=== PATIENT | female | born 1985 | race Caucasian/White ===

== ENCOUNTER 2018-05-17 16:25 | Emergency (ER) | payer OTHER ==
[2018-05-17 16:34] VITALS: BP 108/65
--- NOTE | 2018-05-17 17:19 | ER Document Report ---
HPI - HPI Patient complains to provider of: Needs pain medication refilled Onset: Other - Chronic right-sided back pain Onset/Duration: Persistent Pain Level: 5 Context: 32-year-old female moved here from [place] complaining of exacerbation of her right low back pain especially moving the boxes and moving her household. She has 4 children. She is supposed to get a MRI of her hip because he thinks some of the pain is coming from her hip. She wants a refill on Percocet and ketorolac 10 mg. I explained to her that we cannot prescribe the Percocet but I will be happy to give her the nonsteroidal anti-inflammatory medication and refer her to pain management primary care doctor in the area. No radiculopathy or saddle anesthesia Associated Symptoms: None Exacerbated by: Movement Relieved by: Denies Similar symptoms previously: No Recently seen / treated by doctor: No - ROS ROS below otherwise negative: Yes Systems Reviewed and Negative: Yes All other systems reviewed and negative Past Medical History - General Information source: Patient - Social History Smoking Status: Current Every Day Smoker Frequency of alcohol use: None Drug Abuse: None Lives with: Family Family History: Reviewed & Not Pertinent - Medical History Medical History: Negative Surgical Hx: Negative Vertical Provider Document - CONSTITUTIONAL Agree With Documented VS: Yes Exam Limitations: No Limitations - INFECTION CONTROL TRAVEL OUTSIDE OF THE [place] IN LAST 30 DAYS: No - NECK Neck: Supple - MUSCULOSKELETAL/EXTREMETIES Musculoskeletal/Extremeties: Tender - Right sacral iliac joint area - NEURO Level of Consciousness: Alert Motor/Sensory: No Motor Deficit, No Sensory Deficit Deep Tendon Reflexes: 2+ - Bilateral ankle and patellar - DERM Integumentary: No Rash Course - Vital Signs Vital signs: Temp Pulse Resp BP Pulse Ox 98.7 F 76 14 108/65 99 05/17/18 16:31 05/17/18 16:31 05/17/18 16:31 05/17/18 16:31 05/17/18 16:31 Discharge - Discharge Clinical Impression: chornic right low back pain Condition: Good Disposition: HOME, SELF-CARE Instructions: Acetaminophen, Anti-Inflammatory Medication ([facility]), Family Physicians / Practices, Pain Management Additional Instructions: see primary care doctor Referral to [facility] Warm compress Avoid heavy lifting You can take up to 4000 mg of plain Tylenol The ketorolac as an anti-inflammatory that she can take 3 times a day Return to the emergency room any concerns Prescriptions: Ketorolac Tromethamine 10 mg PO Q8HP PRN #30 tablet PRN Reason: Referrals: WESTON WOOTEN MD [ACTIVE STAFF] - Follow up as needed
== END 2018-05-17 17:29 | disposition home or self-care (01) ==
LOC: ER 16:25
DX: G89.29 Other chronic pain (principal); M54.5 Low back pain; F17.200 Nicotine dependence, unspecified, uncomplicated
CPT/HCPCS: 99283

== ENCOUNTER → 2019-01-22 | Outpatient (CLI) | payer MEDICAID ==
--- NOTE | 2019-01-22 12:45 | RADIOLOGY REPORT (SQ) ---
EXAM DESCRIPTION: HIPS BILATERAL COMPLETED DATE/TIME: 01/22/2019 12:39 pm REASON FOR STUDY: DARCY HIP PAIN M25.551 PAIN IN RIGHT HIP COMPARISON: None. NUMBER OF VIEWS: Two views TECHNIQUE: AP pelvis and additional frog-leg view of both hips. LIMITATIONS: None. FINDINGS: MINERALIZATION: Normal. HIPS: No acute fracture or dislocation. No worrisome bone lesions. PELVIS AND SACRUM: No acute fracture or dislocation. No worrisome bone lesions. PUBIS AND ISCHIUM: No acute fracture. LOWER LUMBAR SPINE: No significant findings as visualized. SOFT TISSUES: No findings. OTHER: No other significant finding. IMPRESSION: NEGATIVE STUDY OF THE PELVIS AND HIPS. TECHNICAL DOCUMENTATION: JOB ID: [id number] [employer]- All Rights Reserved Reading location - IP/workstation name: [email or web address]
== END ==
LOC: OD 12:06
PROVIDERS: ATTEND Student in an Organized Health Care Education/Training Program
DX: M25.551 Pain in right hip (principal); M25.552 Pain in left hip
CPT/HCPCS: 73522

== ENCOUNTER 2019-02-15 20:43 | Emergency (ER) | payer MEDICAID ==
[2019-02-15 20:53] VITALS: BP 110/70
== END 2019-02-15 21:40 | disposition left against medical advice (07) ==
LOC: ER 20:43
DX: Z53.21 Procedure and treatment not carried out due to patient leaving prior to being seen by health care provider (principal)

== ENCOUNTER → 2019-03-19 | Outpatient (CLI) | payer MEDICAID ==
--- NOTE | 2019-03-19 12:48 | RADIOLOGY REPORT (SQ) ---
EXAM DESCRIPTION: C SP 4 OR 5 VIEWS COMPLETED DATE/TIME: 03/19/2019 12:09 pm REASON FOR STUDY: CERVICALGIA M54.2 CERVICALGIA COMPARISON: None. NUMBER OF VIEWS: Five views. TECHNIQUE: AP, lateral, obliques and odontoid radiographic images acquired of the cervical spine. LIMITATIONS: None. FINDINGS: MINERALIZATION: Normal. ALIGNMENT: Anatomic. VERTEBRAE: Vertebral bodies of normal height. DISCS: No significant osteophytes or sclerosis. Disc height maintained. FORAMINA: No osteophytes or foraminal narrowing. LATERAL AND POSTERIOR ELEMENTS: Facets, lateral masses and spinous processes without significant find ings. HARDWARE: None in the spine. SOFT TISSUES: No masses or calcifications. Lung apices clear. OTHER: No other significant finding. IMPRESSION: NO SIGNIFICANT RADIOGRAPHIC FINDING IN THE CERVICAL SPINE. TECHNICAL DOCUMENTATION: JOB ID: [id number] [employer]- All Rights Reserved Reading location - IP/workstation name: [email or web address]
== END ==
LOC: OD 11:38
PROVIDERS: ATTEND Student in an Organized Health Care Education/Training Program
DX: M54.2 Cervicalgia (principal)
CPT/HCPCS: 72050

== ENCOUNTER → 2019-07-18 | Outpatient (CLI) | payer MEDICAID ==
--- NOTE | 2019-07-18 12:01 | RADIOLOGY REPORT (SQ) ---
EXAM DESCRIPTION: MRI LUMBAR SPINE WITHOUT COMPLETED DATE/TIME: 07/18/2019 10:18 am REASON FOR STUDY: LUMBAGO WITH SCIATICA, LEFT SIDE (M54.42) M54.42 LUMBAGO WITH SCIATICA, LEFT SIDE COMPARISON: None. TECHNIQUE: Sagittal and Axial imaging includes T1, T2, STIR and gradient echo sequences. Coronal T2/ HASTE imaging. LIMITATIONS: None. FINDINGS: VISUALIZED UPPER ABDOMEN: Duplicated right renal collecting system, an anatomic variant. SEGMENTATION: No transitional anatomy. The lowest well-developed disc space is labeled L5-S1. ALIGNMENT: Anatomic. VERTEBRAE: Intact. BONE MARROW: Normal. No marrow replacement or reactive changes. DISC SIGNAL: Normal. No significant abnormal signal or loss of height. POSTERIOR ELEMENTS: Moderate bilateral facet arthropathy is present from L3-4 through L5-S1 HARDWARE: None in the spine. CORD AND CONUS: Normal in size and signal intensity. Conus at the L1 level. SOFT TISSUES: No aortic aneurysm seen. No bulky retroperitoneal adenopathy or mass. No paraspinal mas s or fluid. T10-11: At the upper edge of the field of view. Mild bilateral facet hypertrophy is present without central or foraminal stenosis. T11-12: Mild bilateral facet hypertrophy. No central or foraminal stenosis. T12-L1: No central or foraminal stenosis. L1-L2: Mild bilateral facet arthropathy. No central or foraminal stenosis. L2-L3: Mild bilateral facet arthropathy. No central or foraminal stenosis. L3-L4: Moderate bilateral facet arthropathy. No central or foraminal stenosis L4-L5: Minimal posterior disc bulging, moderate bilateral facet arthropathy. No central or foraminal stenosis. L5-S1: Moderate bilateral facet hypertrophy. No central or foraminal stenosis. SACRUM: Visualized upper sacrum intact. OTHER: No other significant findings. IMPRESSION: Diffuse [id number]-st-[id number] facet arthropathy. No central or foraminal stenosis TECHNICAL DOCUMENTATION: JOB ID: [id number]- All Rights Reserved Reading location - IP/workstation name: [email or web address]
== END ==
LOC: RAD 09:40
PROVIDERS: ATTEND Nurse Practitioner Family
DX: M54.42 Lumbago with sciatica, left side (principal)
CPT/HCPCS: 72148

== ENCOUNTER → 2019-08-08 | Outpatient (CLI) | payer MEDICAID ==
--- NOTE | 2019-08-08 14:29 | RADIOLOGY REPORT (SQ) ---
EXAM DESCRIPTION: SACROILIAC JOINTS COMPLETED DATE/TIME: 08/08/2019 12:36 pm REASON FOR STUDY: POLYOSTEOARTHRITIS,CERVICALGIA;PAIN IN RT HIP M54.2 CERVICALGIA M25.551 PAIN IN RIGHT HIP COMPARISON: None. NUMBER OF VIEWS: Three views. TECHNIQUE: AP and oblique views of the sacroiliac joints. LIMITATIONS: None. FINDINGS: MINERALIZATION: Normal. BONES: No acute fracture or dislocation. No worrisome bone lesions. No significant osteophytes. JOINTS: The sacroiliac joints are patent. No unusual widening, sclerosis, or fusion. SOFT TISSUES: No soft tissue swelling. No radio-opaque foreign body. OTHER: No other significant finding. IMPRESSION: NORMAL STUDY OF THE SACROILIAC JOINTS. TECHNICAL DOCUMENTATION: JOB ID: [id number] [employer]- All Rights Reserved Reading location - IP/workstation name: [email or web address]
--- NOTE | 2019-08-08 14:34 | RADIOLOGY REPORT (SQ) ---
EXAM DESCRIPTION: HIPS BILATERAL COMPLETED DATE/TIME: 08/08/2019 12:36 pm REASON FOR STUDY: POLYOSTEOARTHRITIS,CERVICALGIA;PAIN IN RT HIP M54.2 CERVICALGIA M25.551 PAIN IN RIGHT HIP COMPARISON: 01/22/2019 NUMBER OF VIEWS: Two views TECHNIQUE: AP pelvis and additional frog-leg view of both hips. LIMITATIONS: None. FINDINGS: MINERALIZATION: Normal. HIPS: No acute fracture or dislocation. No worrisome bone lesions. PELVIS AND SACRUM: No acute fracture or dislocation. No worrisome bone lesions. PUBIS AND ISCHIUM: No acute fracture. LOWER LUMBAR SPINE: No significant findings as visualized. SOFT TISSUES: No findings. OTHER: No other significant finding. IMPRESSION: NEGATIVE STUDY OF THE PELVIS AND HIPS. TECHNICAL DOCUMENTATION: JOB ID: [id number] [employer]- All Rights Reserved Reading location - IP/workstation name: [email or web address]
--- NOTE | 2019-08-08 14:35 | RADIOLOGY REPORT (SQ) ---
EXAM DESCRIPTION: C SP 4 OR 5 VIEWS COMPLETED DATE/TIME: 08/08/2019 12:36 pm REASON FOR STUDY: POLYOSTEOARTHRITIS,CERVICALGIA;PAIN IN RT HIP M54.2 CERVICALGIA M25.551 PAIN IN RIGHT HIP COMPARISON: None. NUMBER OF VIEWS: Five views. TECHNIQUE: AP, lateral, obliques and odontoid radiographic images acquired of the cervical spine. LIMITATIONS: None. FINDINGS: MINERALIZATION: Normal. ALIGNMENT: Anatomic. VERTEBRAE: Vertebral bodies of normal height. DISCS: No significant osteophytes or sclerosis. Disc height maintained. FORAMINA: No osteophytes or foraminal narrowing. LATERAL AND POSTERIOR ELEMENTS: Facets, lateral masses and spinous processes without significant find ings. HARDWARE: None in the spine. SOFT TISSUES: No masses or calcifications. Lung apices clear. OTHER: No other significant finding. IMPRESSION: NO SIGNIFICANT RADIOGRAPHIC FINDING IN THE CERVICAL SPINE. TECHNICAL DOCUMENTATION: JOB ID: [id number] [employer]- All Rights Reserved Reading location - IP/workstation name: [email or web address]
== END ==
LOC: OD 11:58
PROVIDERS: ATTEND Student in an Organized Health Care Education/Training Program
DX: M25.551 Pain in right hip (principal); M54.2 Cervicalgia; M15.9 Polyosteoarthritis, unspecified
CPT/HCPCS: 72050; 72200; 73522

== ENCOUNTER 2019-11-18 09:58 | Day surgery (SDC) | payer MEDICAID ==
[~2019-11-18 09:58] MED LIST: PROPOFOL INJ 200 MG/20 ML VIAL IV ONE
[2019-11-18 11:54] VITALS: BP 128/70
--- NOTE | 2019-11-18 13:03 | Operative Report ---
Operative Report DATE OF SURGERY: 11/18/19 Operative Report: The risks, benefits and alternatives of the procedure including the risk of bleeding, perforation requiring surgery have been explained to the patient in detail and informed consent has been obtained. Patient is placed in a left, lateral decubital position. Timeout was called. Propofol medication is administered. Rectal examination is done which did not reveal any masses, tears or fissures. An Olympus videoscope was introduced into the patient's rectum. Scope was then carefully advanced all the way to the cecum. Cecum was identified by the usual anatomical landmarks including the ileocecal valve as well as the appendiceal office. Photodocumentation is obtained. Scope was then sequentially pulled back via the various segments of the colon including the ascending colon, hepatic flexure transverse colon, splenic flexure, descending colon finding to the rectosigmoid portions of the colon. Retroflexion maneuvers performed. PREOPERATIVE DIAGNOSIS: Change in bowel habits POSTOPERATIVE DIAGNOSIS: Biopsies obtained right-hand side of the colon to rule out collagenous colitis. Internal hemorrhoids. Mild rectal prolapse OPERATION: Colonoscopy with biopsy SURGEON: MITUL TURNER ANESTHESIA: LMAC TISSUE REMOVED OR ALTERED: As noted above. COMPLICATIONS: None. ESTIMATED BLOOD LOSS: None. INTRAOPERATIVE FINDINGS: As noted above. PROCEDURE: Patient tolerated the procedure well. No immediate postprocedure complications are noted. Patient is discharged in good condition. Discharge date 11/18/2019. Discharge diet: Regular. Discharge activity: Regular. 2 to 3-week follow-up to discuss findings. Patient is instructed to call the office or proceed to the emergency room should there be any further problems or questions. Wait on the pathology.
== END 2019-11-18 11:52 | disposition home or self-care (01) ==
LOC: END 09:58
PROVIDERS: ATTEND Internal Medicine Gastroenterology
DX: K62.3 Rectal prolapse (principal); K64.8 Other hemorrhoids; Z79.899 Other long term (current) drug therapy; Z79.51 Long term (current) use of inhaled steroids; R15.9 Full incontinence of feces; J45.20 Mild intermittent asthma, uncomplicated
CPT/HCPCS: 45380; 88305 ×2; J2704; 811

== ENCOUNTER → 2019-12-04 | Outpatient (CLI) | payer MEDICAID ==
--- NOTE | 2019-12-04 17:09 | RADIOLOGY REPORT (SQ) ---
EXAM DESCRIPTION: CHEST PA/LATERAL COMPLETED DATE/TIME: 12/04/2019 4:59 pm REASON FOR STUDY: WHEEZING COMPARISON: None. EXAM PARAMETERS: NUMBER OF VIEWS: two views TECHNIQUE: Digital Frontal and Lateral radiographic views of the chest acquired. RADIATION DOSE: NA LIMITATIONS: none FINDINGS: LUNGS AND PLEURA: No opacities, masses or pneumothorax. No pleural effusion. MEDIASTINUM AND HILAR STRUCTURES: No masses or contour abnormalities. HEART AND VASCULAR STRUCTURES: Heart normal size. No evidence for failure. BONES: No acute findings. HARDWARE: None in the chest. OTHER: No other significant finding. IMPRESSION: NO SIGNIFICANT RADIOGRAPHIC FINDING IN THE CHEST. TECHNICAL DOCUMENTATION: JOB ID: [id number] [employer]- All Rights Reserved Reading location - IP/workstation name: [email or web address]
== END ==
LOC: RAD 16:41
PROVIDERS: ATTEND Nurse Practitioner Family
DX: R06.2 Wheezing (principal)
CPT/HCPCS: 71046